=== PATIENT | male | born 1940 | race Caucasian/White ===

== ENCOUNTER 2023-05-15 11:14 | Outpatient (REF) | payer MEDICARE, SELFPAY ==
[2023-05-15 11:41] LABS: Basophils Absolute Auto 0.07 K/uL (0.00-0.30); Basophils Percent Auto 1.4 % (0.0-3.0); Eosinophils Percent Auto 7.7 % (0.0-7.0); Hematocrit 32.3 % (37.0-53.0); Hemoglobin* 10.3 gm/dL (13.5-17.5); Immature Granulocytes Abs Auto 0.01 K/uL (0.00-0.30); Immature Granulocytes Pct Auto 0.2 %; Lymphocytes Percent Auto 12.2 % (20-44); Mean Corpuscular HGB Conc 32 gm/dL (32-36); Mean Corpuscular Hemoglobin 33 pg (26-34); Mean Corpuscular Volume 105 fL (80-100); Monocytes Percent Auto 6.7 % (0.0-11.0); Neutrophils Absolute Auto 3.65 K/uL (1.7-7.0); Neutrophils Percent Auto 71.8 % (42.0-72.0); Platelet Count* 182 K/uL (140-440); RDW Coefficient of Variation % 15.2 % (11.5-15.5); Red Blood Count 3.09 m/uL (4.30-5.90); Slide Review Reflex No; White Blood Count* 5.08 K/uL (4.50-11.00)
[2023-05-15 11:44] LABS: Albumin* 4.2 g/dL (3.3-5.0); Chloride* 105 mmol/L (96-114)
[2023-05-15 11:45] LABS: Potassium* 3.1 mmol/L (3.6-5.1); Sodium* 142 mmol/L (135-149)
[2023-05-15 11:47] LABS: Aspartate Amino Transferase* 31 U/L (12-35); Carbon Dioxide* 28 mmol/L (20-32); Creatinine* 1.1 mg/dL (0.5-1.5); Estimated Glomerular Filt Rate 66 ml/min; Total Protein* 7.4 g/dL (6.0-8.3)
[2023-05-15 11:48] LABS: Alanine Aminotransferase* 20 U/L (4-50); Alkaline Phosphatase* 71 U/L (40-150); Blood Urea Nitrogen* 20 mg/dL (7-30); Calcium* 9.5 mg/dL (8.4-10.6); Glucose* 101 mg/dL (60-115)
== END 2023-05-15 11:15 | disposition home or self-care (01) ==
LOC: NPINS 11:14
PROVIDERS: PCP Family Medicine; Visit Provider Internal Medicine Hematology & Oncology
DX: D69.6 Thrombocytopenia, unspecified (principal)
CPT/HCPCS: 80053; 85025

== ENCOUNTER 2023-06-12 12:30 | Outpatient (RCR) | payer MEDICARE, SELFPAY ==
[2023-06-12 12:59] LABS: Basophils Absolute Auto 0.05 K/uL (0.00-0.30); Basophils Percent Auto 0.9 % (0.0-3.0); Eosinophils Absolute Auto 0.15 K/uL (0.00-0.50); Eosinophils Percent Auto 2.7 % (0.0-7.0); Hematocrit 33.8 % (37.0-53.0); Hemoglobin* 10.7 gm/dL (13.5-17.5); Lymphocytes Percent Auto 11.6 % (20-44); Mean Corpuscular HGB Conc 32 gm/dL (32-36); Mean Corpuscular Hemoglobin 32 pg (26-34); Mean Corpuscular Volume 101 fL (80-100); Monocytes Percent Auto 8.8 % (0.0-11.0); Platelet Count* 212 K/uL (140-440); RDW Coefficient of Variation % 14.1 % (11.5-15.5); Red Blood Count 3.36 m/uL (4.30-5.90); White Blood Count* 5.59 K/uL (4.50-11.00)
[2023-06-12 13:04] LABS: Slide Review Reflex No
[2023-07-10 09:44] LABS: Basophils Absolute Auto 0.05 K/uL (0.00-0.30); Basophils Percent Auto 0.9 % (0.0-3.0); Eosinophils Absolute Auto 0.25 K/uL (0.00-0.50); Eosinophils Percent Auto 4.6 % (0.0-7.0); Hematocrit 34.3 % (37.0-53.0); Hemoglobin* 10.8 gm/dL (13.5-17.5); Lymphocytes Percent Auto 16.5 % (20-44); Mean Corpuscular HGB Conc 32 gm/dL (32-36); Mean Corpuscular Hemoglobin 31 pg (26-34); Mean Corpuscular Volume 99 fL (80-100); Monocytes Percent Auto 6.1 % (0.0-11.0); Neutrophils Absolute Auto 3.91 K/uL (1.7-7.0); Neutrophils Percent Auto 71.9 % (42.0-72.0); Platelet Count* 201 K/uL (140-440); RDW Coefficient of Variation % 15.6 % (11.5-15.5); Red Blood Count 3.45 m/uL (4.30-5.90); White Blood Count* 5.44 K/uL (4.50-11.00)
[2023-07-10 09:57] LABS: Slide Review Reflex No
[2023-07-10 09:59] LABS: Chloride* 104 mmol/L (96-114); Potassium* 3.4 mmol/L (3.6-5.1); Sodium* 143 mmol/L (135-149)
[2023-07-10 10:01] LABS: Creatinine* 1.4 mg/dL (0.5-1.5); Estimated Glomerular Filt Rate 49 ml/min
[2023-07-10 10:02] LABS: Anion Gap 14 mEq/L (7-15); Blood Urea Nitrogen* 29 mg/dL (7-30); Calcium* 9.8 mg/dL (8.4-10.6); Carbon Dioxide* 25 mmol/L (20-32); Glucose* 110 mg/dL (60-115)
[2023-09-11 08:56] LABS: Basophils Absolute Auto 0.05 K/uL (0.00-0.30); Basophils Percent Auto 1.1 % (0.0-3.0); Eosinophils Absolute Auto 0.22 K/uL (0.00-0.50); Eosinophils Percent Auto 4.8 % (0.0-7.0); Hematocrit 32.9 % (37.0-53.0); Hemoglobin* 10.2 gm/dL (13.5-17.5); Lymphocytes Percent Auto 18.7 % (20-44); Mean Corpuscular HGB Conc 31 gm/dL (32-36); Mean Corpuscular Hemoglobin 32 pg (26-34); Mean Corpuscular Volume 103 fL (80-100); Monocytes Percent Auto 7.7 % (0.0-11.0); Neutrophils Absolute Auto 3.08 K/uL (1.7-7.0); Neutrophils Percent Auto 67.7 % (42.0-72.0); Platelet Count* 166 K/uL (140-440); RDW Coefficient of Variation % 20.3 % (11.5-15.5); Red Blood Count 3.21 m/uL (4.30-5.90); White Blood Count* 4.55 K/uL (4.50-11.00)
[2023-09-11 08:57] LABS: Slide Review Reflex No
[2023-10-10 10:45] LABS: Basophils Percent Auto 1.3 % (0.0-3.0); Eosinophils Percent Auto 8.5 % (0.0-7.0); Hematocrit 31.7 % (37.0-53.0); Hemoglobin* 10.2 gm/dL (13.5-17.5); Lymphocytes Percent Auto 16.8 % (20-44); Mean Corpuscular HGB Conc 32 gm/dL (32-36); Mean Corpuscular Hemoglobin 34 pg (26-34); Mean Corpuscular Volume 105 fL (80-100); Monocytes Percent Auto 8.5 % (0.0-11.0); Neutrophils Percent Auto 64.9 % (42.0-72.0); Platelet Count* 168 K/uL (140-440); RDW Coefficient of Variation % 18.3 % (11.5-15.5); Red Blood Count 3.03 m/uL (4.30-5.90); White Blood Count* 4.46 K/uL (4.50-11.00)
[2023-10-10 10:47] LABS: Slide Review Reflex No
[2023-12-11 09:04] LABS: Basophils Absolute Auto 0.04 K/uL (0.00-0.30); Basophils Percent Auto 0.8 % (0.0-3.0); Eosinophils Absolute Auto 0.24 K/uL (0.00-0.50); Eosinophils Percent Auto 4.6 % (0.0-7.0); Hematocrit 33.9 % (37.0-53.0); Hemoglobin* 10.9 gm/dL (13.5-17.5); Lymphocytes Percent Auto 14.3 % (20-44); Mean Corpuscular HGB Conc 32 gm/dL (32-36); Mean Corpuscular Hemoglobin 34 pg (26-34); Mean Corpuscular Volume 107 fL (80-100); Monocytes Percent Auto 7.8 % (0.0-11.0); Neutrophils Percent Auto 72.5 % (42.0-72.0); Platelet Count* 143 K/uL (140-440); RDW Coefficient of Variation % 16.1 % (11.5-15.5); Red Blood Count 3.17 m/uL (4.30-5.90); White Blood Count* 5.26 K/uL (4.50-11.00)
[2023-12-11 09:25] LABS: Slide Review Reflex Yes
[2023-12-11 09:26] LABS: Slide Review Acceptable Review (Acceptable)
== END 2024-06-03 09:31 | disposition home or self-care (01) ==
LOC: LAB 12:30
PROVIDERS: PCP Family Medicine; Visit Provider Nurse Practitioner Gerontology
DX: D53.9 Nutritional anemia, unspecified (principal); Z51.89 Encounter for other specified aftercare
CPT/HCPCS: 36415; 80048; 85025

== ENCOUNTER 2023-09-04 08:58 | Outpatient (REF) | payer MEDICARE, SELFPAY ==
[2023-09-04 09:54] LABS: Chloride* 107 mmol/L (96-114); Potassium* 3.9 mmol/L (3.6-5.1); Sodium* 142 mmol/L (135-149)
[2023-09-04 09:57] LABS: Anion Gap 7 mEq/L (7-15); Blood Urea Nitrogen* 36 mg/dL (7-30); Carbon Dioxide* 28 mmol/L (20-32); Creatinine* 1.5 mg/dL (0.5-1.5); Estimated Glomerular Filt Rate 45 ml/min; Glucose* 98 mg/dL (60-115)
[2023-09-04 09:58] LABS: Calcium* 9.7 mg/dL (8.4-10.6)
== END 2023-09-04 08:59 | disposition home or self-care (01) ==
LOC: NPINS 08:58
PROVIDERS: PCP Family Medicine; Visit Provider Family Medicine
DX: I50.9 Heart failure, unspecified (principal); E87.6 Hypokalemia
CPT/HCPCS: 36415; 80048

== ENCOUNTER 2023-10-22 11:14 | Emergency (ER) | payer MEDICARE, SELFPAY ==
[2023-10-22 11:19] VITALS: BP 111/77; PULSE 63; RESP 16; TEMP 36.6; O2SAT 92; BMI 25.7
--- NOTE | 2023-10-22 11:22 | CRLHL7_ITS ---
For Patients: As a result of the Cures Act, medical imaging exams and procedure reports are released immediately into your electronic medical record. You may view this report before your referring provider. If you have questions, please contact your health care provider. INDICATION: FALL, HIT BACK OF HEAD TECHNIQUE: Head CT without contrast. COMPARISON: CT head report on 03/29/2023 FINDINGS: CSF spaces: Within normal limits for age and degree of involutional changes.. Brain parenchyma and extra-axial spaces: Global cortical involutional changes. There are nonspecific low attenuation white matter changes consistent with chronic microvascular disease. No sign of mass, hemorrhage, or midline shift. 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 Encephalomalacia in the right occipital lobe. Skull base and calvarium: The visualized paranasal sinuses and mastoid air cells demonstrate no acute or significant findings. The visualized orbits are grossly unremarkable. No skull fractures. Small contusion/hematoma in the subcutaneous fat of the scalp at the occipital region, left of midline. IMPRESSION: 1. No evidence of an acute intracranial process. 2. Chronic infarcts as detailed above with small vessel ischemic changes and age related volume loss. 3. No acute fracture. Small contusion/hematoma in the subcutaneous fat of the scalp at the occipital region, left of midline. Please note that all CT scans at this facility use dose modulation, iterative reconstruction, and/or weight-based dosing when appropriate to reduce radiation dose to as low as reasonably achievable. Dictated by Colin Escalera MD @ 10/22/2023 12:22:12 PM (Electronically Signed)
--- NOTE | 2023-10-22 11:26 | ED.GENADULT ---
HPI - General Adult General Date Seen: 10/22/23 Chief complaint: Fall/Minor Trauma Stated complaint: fall last night- hurt head Time Seen by Provider: 10/22/23 11:16 Source: patient, family and RN notes reviewed Mode of arrival: wheelchair Limitations: no limitations History of Present Illness HPI narrative: Patient is an 83-year-old male here with his son. He is a resident at [facility]. Last night he says he was transferring and fell backward, striking the back of his head on the ground. He did not have loss of consciousness. He denies any symptoms such as headache, neck pain, nausea, vomiting, confusion, and denies any other injuries. He has a small cut on the back of his head. He did not want come in last night at 7:31 a.m. this occurred and so presents at 11:30 a.m. the morning of the next day. Last tetanus under review. He takes a baby aspirin. He used to take Eliquis secondary to history of atrial fibrillation apparently, but had severe thrombocytopenia and so was discontinued. Related Data Home Medications Medication Instructions Recorded Confirmed albuterol sulfate 90 mcg/actuation inhalation 10/22/23 aerosol inhaler aspirin 81 mg tablet,delayed 81 mg PO DAILY 10/22/23 10/22/23 release (Adult Aspirin Regimen) diclofenac sodium 1 % topical gel topical 10/22/23 ferrous sulfate 325 mg (65 mg 325 mg PO DAILY 10/22/23 10/22/23 iron) tablet (Feosol) fluoxetine 40 mg capsule 40 mg PO DAILY 10/22/23 10/22/23 fluticasone propionate 50 intranasal 10/22/23 mcg/actuation nasal spray,suspension furosemide 40 mg tablet 40 mg PO BID 10/22/23 10/22/23 multivitamin (Daily Multi-Vitamin 1 tab PO DAILY 10/22/23 10/22/23 tablet) pantoprazole 40 mg tablet,delayed 40 mg PO DAILY 10/22/23 10/22/23 release potassium chloride 10 mEq 10 meq PO DAILY 10/22/23 10/22/23 tablet,extended release(part/cryst) rosuvastatin 5 mg tablet 5 mg PO DAILY 10/22/23 10/22/23 tamsulosin 0.4 mg capsule mg PO DAILY 10/22/23 trazodone 50 mg tablet mg PO 10/22/23 Allergies Allergy/AdvReac Type Severity Reaction Status Date / Time chlorpheniramine Allergy Unknown Verified 10/22/23 11:26 Review of Systems Status of ROS: Reports: 6 or more systems reviewed and unremarkable except as noted in History and below [facility] Social History Smoking Status: Never smoker Exam Narrative: Exam Narrative: Vital signs as noted above. In general, an alert, well-appearing patient. Head: Normocephalic. He has a small abrasion and an associated approximately 0.5 cm laceration on the occipital scalp. Bleeding is controlled. Minor surrounding hematoma. Eyes: Pupils are equal reactive. Extraocular movements are full. Conjunctivae are normal. ENT: Mucous membranes are moist. No facial trauma. Neck: Supple without lymphadenopathy. Nontender to palpation. Extremities: Well perfused. No edema. No calf tenderness. Pulses intact. Neurologic: Patient is alert and oriented to person and place. Speech is fluent. Face is symmetric. Moves all extremities equally. Affect: Normal. Skin: Warm and dry. Well perfused. Const: Vital Signs, click to edit/add: Vital Signs - 24 hr 10/22/23 11:19 Temperature 98 F Pulse Rate [Pulse Oximeter] 63 Respiratory Rate 16 Blood Pressure [Ri ght Upper Arm] 111/77 Pulse Oximetry 92 Oxygen Delivery Me thod Room Air Documenting provider has reviewed patient's vital signs: yes Course Course ED Course: Given that the scalp wound is small and is about 16 hours old I have recommended that we simply treat that expectantly rather than closing. Discussed increased risk of infection with closure at this point, and given that the wound edges are nicely approximated, there is no bleeding, I think it will heal just fine without intervention. Did recommend noncontrast head CT to rule out intracranial injury. This is pending. He has no other complaints or injuries at this time. CT scan by my review is negative for acute findings such as hemorrhage; final radiology is negative as well. Tetanus was updated today. Discussed routine wound care, return for signs of severe head injury or infection. Vital Signs Vital signs: Initial Vital Signs Temperature 98 F 10/22/23 11:19 Temperature Source Temporal Artery Scan 10/22/23 11:19 Pulse Rate 63 10/22/23 11:19 Respiratory Rate 16 10/22/23 11:19 Blood Pressure 111/77 10/22/23 11:19 Blood Pressure Mean 88 10/22/23 11:19 Blood Pressure Position Supine 10/22/23 11:19 Pulse Oximetry 92 10/22/23 11:19 Oxygen Delivery Method Room Air 10/22/23 11:19 Vital Signs Temperature 98 F 10/22/23 11:19 Pulse Rate 63 10/22/23 11:19 Respiratory Rate 16 10/22/23 11:19 Blood Pressure 111/77 10/22/23 11:19 Pulse Oximetry 92 10/22/23 11:19 Oxygen Delivery Method Room Air 10/22/23 11:19 Temperature 98 F 10/22/23 11:19 Pulse Rate 63 10/22/23 11:19 Respiratory Rate 16 10/22/23 11:19 Blood Pressure 111/77 10/22/23 11:19 Pulse Oximetry 92 10/22/23 11:19 Oxygen Delivery Method Room Air 10/22/23 11:19 Medications Administered Medications: Discontinued Medications Generic Name Dose Route Start Last Admin Trade Name Mars PRN Reason Stop Dose Admin Diphtheria/Tetanus/Acell Pertussis 0.5 ml 10/22/23 12:13 10/22/23 12:28 Tetanus/Diphth/Pertussis 0.5 Ml Syringe IM 10/22/23 12:14 0.5 ml .ONCE ONE Administration Discharge Plan Discharge Clinical Impression: Laceration of scalp Patient Disposition: Home w/ Parent or Adult Condition: Stable Instructions: Laceration Without Closure (ED) Additional Instructions: Head CT today is reassuring. Wound on your scalp should heal without incident, but if you develop significant increased swelling, pain, drainage etcetera you should be seen again to rule out infection. If you were to develop severe headache, vomiting, confusion etcetera he should also return for re-evaluation. Prescriptions: No Action fluoxetine 40 mg capsule 40 mg PO DAILY furosemide 40 mg tablet 40 mg PO BID trazodone 50 mg tablet PO tamsulosin 0.4 mg capsule PO DAILY pantoprazole 40 mg tablet,delayed release (DR/EC) 40 mg PO DAILY albuterol sulfate 90 mcg/actuation HFA aerosol inhaler inhalation fluticasone propionate 50 mcg/actuation spray,suspension INTRANASAL Patient Comments: [NO ORIGINAL SIG] rosuvastatin 5 mg tablet 5 mg PO DAILY potassium chloride 10 mEq tablet,ER particles/crystals 10 meq PO DAILY aspirin [Adult Aspirin Regimen] 81 mg tablet,delayed release (DR/EC) 81 mg PO DAILY diclofenac sodium 1 % gel topical ferrous sulfate [Feosol] 325 mg (65 mg iron) tablet 325 mg PO DAILY multivitamin [Daily Multi-Vitamin] Tablet 1 tab PO DAILY Follow Up/Referrals: Danika Talley MD [Primary Care Provider] - Stand Alone Forms: [employer] Info Instructions
[2023-10-22] MEDS: TETANUS/DIPHTH/PERTUSSIS 0.5 ML SYRINGE IM (12:28)
== END 2023-10-22 12:35 | disposition home or self-care (01) ==
PROVIDERS: Emergency Provider Emergency Medicine; PCP Family Medicine
DX: S01.01XA Laceration without foreign body of scalp, initial encounter (principal); W18.30XA Fall on same level, unspecified, initial encounter
CPT/HCPCS: 70450; 90471; 90715; 99284

== ENCOUNTER 2023-11-13 09:17 | Outpatient (REF) | payer MEDICARE, SELFPAY ==
[2023-11-13 09:54] LABS: Basophils Absolute Auto 0.06 K/uL (0.00-0.30); Basophils Percent Auto 1.1 % (0.0-3.0); Eosinophils Percent Auto 10.7 % (0.0-7.0); Hematocrit 33.2 % (37.0-53.0); Hemoglobin* 10.7 gm/dL (13.5-17.5); Immature Granulocytes Abs Auto 0.05 K/uL (0.00-0.30); Lymphocytes Percent Auto 16.9 % (20-44); Mean Corpuscular HGB Conc 32 gm/dL (32-36); Mean Corpuscular Hemoglobin 34 pg (26-34); Mean Corpuscular Volume 106 fL (80-100); Monocytes Percent Auto 5.9 % (0.0-11.0); Neutrophils Absolute Auto 3.36 K/uL (1.7-7.0); Neutrophils Percent Auto 64.4 % (42.0-72.0); Platelet Count* 175 K/uL (140-440); RDW Coefficient of Variation % 16.7 % (11.5-15.5); Red Blood Count 3.14 m/uL (4.30-5.90); White Blood Count* 5.22 K/uL (4.50-11.00)
[2023-11-13 09:57] LABS: Slide Review Reflex No
== END 2023-11-13 09:18 | disposition home or self-care (01) ==
LOC: NPINS 09:17
PROVIDERS: PCP Family Medicine; Visit Provider Nurse Practitioner Gerontology
DX: D53.9 Nutritional anemia, unspecified (principal)
CPT/HCPCS: 85025

== ENCOUNTER 2023-12-18 21:30 | Emergency (ER) | payer MEDICARE, SELFPAY ==
[2023-12-18 21:35] VITALS: BP 113/66; PULSE 74; RESP 20; O2SAT 90; BMI 25.8
--- NOTE | 2023-12-18 21:52 | ED_ITS ---
HPI - General Adult General Chief complaint: Fall/Minor Trauma Stated complaint: Fall-Injury knee/hip possibly left side. Time Seen by Provider: 12/18/23 21:44 History of Present Illness HPI narrative: ft hip?This morning had a soft, controlled fall. Had another fall tonight that he now has pain. Went down and twisted knee and hip. Unknown when the fall occurred 83-year-old man presenting to the emergency department following a fall. Brought to this department by his son and I believe daughter in-law. Actually had a fall around 8:00 a.m. this morning and then again shortly before arrival. Did not hit his head. Primary complaint is spasms of pain or cramping in the left hip area. Both falls involved attempted transfer to or from wheelchair and bed and then landing on his ?butt?. He is wheelchair-bound he explains because of knee problems. The otherwise there was no new weakness or fever or cough or cold symptoms. I note him to be mildly labored and a little tachypneic but it would appear that this is around his baseline. He is not having back pain necessarily but feels like there is some, later as he describes some tension in or across his back in hips. Appears to have a complicated past medical history. Most recent admission was in March 2023 with marked thrombocytopenia and intracerebral bleed. Most recently seen in clinic at least cardiology clinic October of this year. And a transesophageal echo from 10/12/2019 for with normal left ventricular size and EF of 60 65%. Moderately enlarged right ventricular cavity and global RV function moderately reduced. Mitral valve with severe mitral regurgitation with flail leaflet. Tricuspid valve mild to moderate regurgitation. 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 He did have a bioprosthetic replacement of mitral valve and tricuspid valve but this failed on the mitral valve. With thrombocytopenia and cerebral hemorrhage was discontinued on anticoagulation beyond aspirin. As he is not terribly active with wheelchair bound and risk of bleeding with required anticoagulation decision at this point looks to have been made to not proceed with valve in valve procedure or Watchman. 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 in some degree of assisted living Medications include Acetaminophen Albuterol Topical diclofenac 81 mg aspirin Iron tabs Fluoxetine Fluticasone Furosemide 40 mg b.i.d. Multivitamin Pantoprazole Potassium 10 mEq daily Rosuvastatin Tamsulosin Trazodone Preprocedural amoxicillin Neosporin to scalp Related Data Home Medications Medication Instructions Recorded Confirmed albuterol sulfate 90 mcg/actuation inhalation 10/22/23 aerosol inhaler aspirin 81 mg tablet,delayed 81 mg PO DAILY 10/22/23 12/18/23 release (Adult Aspirin Regimen) diclofenac sodium 1 % topical gel topical 10/22/23 ferrous sulfate 325 mg (65 mg 325 mg PO DAILY 10/22/23 12/18/23 iron) tablet (Feosol) fluoxetine 40 mg capsule 40 mg PO DAILY 10/22/23 12/18/23 fluticasone propionate 50 intranasal 10/22/23 mcg/actuation nasal spray,suspension furosemide 40 mg tablet 40 mg PO BID 10/22/23 12/18/23 multivitamin (Daily Multi-Vitamin 1 tab PO DAILY 10/22/23 12/18/23 tablet) pantoprazole 40 mg tablet,delayed 40 mg PO DAILY 10/22/23 12/18/23 release potassium chloride 10 mEq 10 meq PO DAILY 10/22/23 12/18/23 tablet,extended release(part/cryst) rosuvastatin 5 mg tablet 5 mg PO DAILY 10/22/23 12/18/23 tamsulosin 0.4 mg capsule 0.4 mg PO DAILY 10/22/23 12/18/23 trazodone 50 mg tablet 50 mg PO PRN 10/22/23 acetaminophen 500 mg tablet 1,000 mg PO TID 12/18/23 12/18/23 (Acetaminophen Extra Strength) Allergies Allergy/AdvReac Type Severity Reaction Status Date / Time chlorpheniramine Allergy Unknown Verified 12/18/23 21:44 Review of Systems Status of ROS: Reports: 6 or more systems reviewed and unremarkable except as noted in History and below [facility] Social History Smoking Status: Never smoker How often do you have a drink containing alcohol: never AUDIT-C Alcohol total score: 0 Non-prescribed substance use: denies use service: No Exam Narrative: Exam Narrative: Is pleasant. Seated in wheelchair with left leg somewhat extended in front. Occasionally shivers in apparent spasm of pain. He is mildly tachypneic and mildly labored in his breathing as noted above. Trace upper airway wheeze. Oropharynx is sticky. Head does not appear to have sustained any recent trauma. Neck is supple. Cranial nerves 2-12 intact with equal pupils approximately 3 mm. He is speaking fluidly. Occasionally is forgetful. Lungs otherwise appear to be clear in the upper slaas but increasing crepitus with auscultation into middle and lower lung salas. 3/6 higher pitched holo-systolic murmur, thrill? across the precordium. Truncal movement does elicit exacerbation of pain. Generally peers well-perfused knee extremities. Though bilateral lower legs are a little cool. 1+ pitting edema in the lower legs. Flexes the right thigh without significant difficulty, hesitantly. Manipulation of the left thigh though illicits clear exacerbation of pain. He is quite sore to palpation over the left greater trochanter and posterior to this. Does not have tenderness to palpation of the midline spine. No other indication of trauma on his extremities; no erythema to his knees. Bilateral well-healed surgical scars are evident here. Const: Vital Signs, click to edit/add: Vital Signs - 24 hr 12/18/23 21:35 12/19/23 00:29 12/19/23 00:30 Temperature Pulse Rate [Pulse Oximeter] 74 70 Respiratory Rate 20 16 Blood Pressure [Le ft Upper Arm] 113/66 118/67 Pulse Oximetry 90 90 91 Oxygen Delivery Me thod Room Air Nasal Cannula Nasal Cannula Oxygen Flow Rate 3 Fraction of Inspir ed Oxygen 3 12/19/23 00:32 Temperature 97.7 F Pulse Rate [Pulse Oximeter] Respiratory Rate Blood Pressure [Le ft Upper Arm] Pulse Oximetry Oxygen Delivery Me thod Oxygen Flow Rate Fraction of Inspir ed Oxygen Documenting provider has reviewed patient's vital signs: yes Course Vital Signs Vital signs: Initial Vital Signs Pulse Rate 74 12/18/23 21:35 Respiratory Rate 20 12/18/23 21:35 Blood Pressure 113/66 12/18/23 21:35 Blood Pressure Mean 81 12/18/23 21:35 Blood Pressure Position Sitting 12/18/23 21:35 Pulse Oximetry 90 12/18/23 21:35 Oxygen Delivery Method Room Air 12/18/23 21:35 Vital Signs Pulse Rate 74 12/18/23 21:35 Respiratory Rate 20 12/18/23 21:35 Blood Pressure 113/66 12/18/23 21:35 Pulse Oximetry 90 12/18/23 21:35 Oxygen Delivery Method Room Air 12/18/23 21:35 Temperature 97.7 F 12/19/23 00:32 Pulse Rate 73 12/19/23 12:02 Respiratory Rate 20 12/19/23 05:14 Blood Pressure 120/73 12/19/23 12:02 Pulse Oximetry 94 12/19/23 12:02 Oxygen Delivery Method OxyMask 12/19/23 05:14 Oxygen Flow Rate 5 12/19/23 05:14 Fraction of Inspired Oxygen 3 12/19/23 00:30 Medications Administered Medications: Discontinued Medications Generic Name Dose Route Start Last Admin Trade Name Freq PRN Reason Stop Dose Admin Albuterol/Ipratropium 1 neb 12/19/23 02:51 12/19/23 02:52 Iprat-Albut 0.5-2.5 Mg/3 Ml Neb IH 12/19/23 02:52 1 neb ONCE ONE Administration Furosemide 20 mg 12/18/23 23:48 12/19/23 00:07 Furosemide 10 Mg/Ml Inj IVP 12/18/23 23:49 20 mg ONCE ONE Administration Hydromorphone HCl 0.2 - 0.5 mg 12/19/23 04:12 12/19/23 12:19 Hydromorphone 0.5 Mg/0.5 Ml Inj IVP 0.5 mg Q2H PRN Administration Pain Lidocaine HCl 6 ml 12/18/23 23:51 12/19/23 00:10 Lidocaine Hcl 2 % Jelly (Top) Sterile UR 6 ml ONCE PRN Administration Morphine Sulfate 4 mg 12/18/23 22:06 12/18/23 22:20 Morphine 4 Mg/Ml Inj IVP 12/18/23 22:07 4 mg ONCE ONE Administration Morphine Sulfate 4 mg 12/18/23 23:25 12/18/23 23:50 Morphine 4 Mg/Ml Inj IVP 4 mg ONCE PRN Administration pain Medical Decision Making MDM Narrative Medical decision making narrative: Will need to evaluate for hip fracture to begin with. Pelvic fracture also. Appears to have pulmonary congestion of some sort. From discussion with son and [id number] and review of records it would appear that Mr. Parikh is rather complicated with numerous comorbidities. Reviewing records shows oxygen saturations of 90% on room air near baseline or at least similar to October this year when seen Cardiology with oxygen saturation of 92%. Placed IV. Morphine for initial pain dose was helpful. X-ray of hip and pelvis shows by my read a left femoral neck fracture with minimal displacement. Femoral head is seated in the acetabulum. With congestion evident and hypoxia did request also chest x-ray in anticipation of possible surgery. Chest x-ray reviewed by me small left pleural effusion and interstitial fluid. Atelectatic change. Radiology over-read as below Study:?XRay Chest PCXR-12/18/2023 11:07:26 PM Ordering Physician:SHEREE Final Report: INDICATION: Valvular disease, wheeze, fall. TECHNIQUE: Chest 1 view. COMPARISON: None. FINDINGS: The right costophrenic angle is excluded from the field of view. Small left pleural effusion. Consolidation in the left lung base and retrocardiac region may represent atelectasis or infiltrate. Increased interstitial opacities bilaterally. Hazy airspace opacities in the mid to lower lungs. No pneumothorax. Normal heart size. Pulmonary vascular congestion. Sternotomy with cardiac valve prostheses. Degenerative changes of the shoulders. IMPRESSION: 1. Pulmonary vascular congestion with bilateral interstitial prominence likely due to edema. 2. Small left pleural effusion with atelectasis or infiltrate in the left lung base. Did discuss with orthopedics for potential surgery. My concern still is comorbidities and subsequent intraoperative and postoperative course. I discussed this with hospitalist who will be discussing further care concerns with family. Platelets of a 128,000. Hemoglobin of 8.6 is similar to there reported baseline of somewhere around 8 or 9 though last checked here was just a little bit over 10. Due to concerns of comorbidities, recommendations are to receive further cares at [facility]. I spoken with the hospitalist there and he is accepted on a bed wait. Recommendations are to hold on on IV fluid resuscitation, transition to Dilaudid if opiate needed and hold on IV diuresis. Will be handing off at change of shift Lab Data Lab results reviewed: Yes I reviewed the patient's lab results Labs: Lab Results 12/18/23 12/18/23 12/19/23 Range/Units 23:00 23:12 00:04 WBC 6.11 (4.50-11.00) K/uL RBC 2.49 L (4.30-5.90) m/uL Hgb 8.6 L (13.5-17.5) gm/dL Hct 27.0 L (37.0-53.0) % MCV 108 H (80-100) fL MCH 35 H (26-34) pg MCHC 32 (32-36) gm/dL RDW Coeff of Jay 15.9 H (11.5-15.5) % Plt Count 128 L (140-440) K/uL Neut % (Auto) 82.0 H (42.0-72.0) % Lymph % (Auto) 10.1 L (20-44) % Wilson % (Auto) 5.4 (0.0-11.0) % Eos % (Auto) 2.0 (0.0-7.0) % Baso % (Auto) 0.3 (0.0-3.0) % Neut # (Auto) 5.00 (1.7-7.0) K/uL Lymph # (Auto) 0.60 L (0.90-2.90) K/uL Wilson # (Auto) 0.30 (0.00-0.90) K/UL Eos # (Auto) 0.12 (0.00-0.50) K/uL Baso # (Auto) 0.02 (0.00-0.30) K/uL Abs Immat Gran (auto) 0.01 (0.00-0.30) K/uL Imm/Tot Granulo (auto) 0.2 % Sodium 141 (135-149) mmol/L Potassium 3.7 (3.6-5.1) mmol/L Chloride 108 (96-114) mmol/L Carbon Dioxide 24 (20-32) mmol/L Anion Gap 9 (7-15) mEq/L BUN 40 H (7-30) mg/dL Creatinine 1.6 H (0.5-1.5) mg/dL Estimated Creat Clear 35.95 Estimated GFR 42 ml/min Glucose 103 (60-115) mg/dL Calcium 9.2 (8.4-10.6) mg/dL Troponin I < 0.01 L (0.01-0.04) ng/mL NT-Pro-B Natriuret Pep 2470 pg/mL Urine Color Yellow (Yellow) Urine Appearance Slightly Cloudy A (Clear) Urine pH 5.5 (5.0-8.5) Ur Specific [place] 1.015 (1.000-1.030) Urine Protein Negative (Negative) Urine Glucose (UA) Negative (Negative) Urine Ketones Negative (Negative) Urine Blood Negative (Negative) Urine Nitrite Negative (Negative) Urine Bilirubin Negative (Negative) Urine Urobilinogen 0.2 (0.2-1.0) Ur Leukocyte Esterase Negative (Negative) Urine RBC 0-2 (0-2) Urine WBC 0-2 (0-5) Ur Squamous Epith Cells Few (None-Few) Urine Bacteria None (None) SARS-CoV-2 (PCR) (Negative) Influenza Type A (PCR) (Negative) Influenza Type B (PCR) (Negative) RSV (PCR) (Negative) Lab Acknowledgement Test Added 12/19/23 Range/Units 02:55 WBC (4.50-11.00) K/uL RBC (4.30-5.90) m/uL Hgb (13.5-17.5) gm/dL Hct (37.0-53.0) % MCV (80-100) fL MCH (26-34) pg MCHC (32-36) gm/dL RDW Coeff of Jay (11.5-15.5) % Plt Count (140-440) K/uL Neut % (Auto) (42.0-72.0) % Lymph % (Auto) (20-44) % Wilson % (Auto) (0.0-11.0) % Eos % (Auto) (0.0-7.0) % Baso % (Auto) (0.0-3.0) % Neut # (Auto) (1.7-7.0) K/uL Lymph # (Auto) (0.90-2.90) K/uL Wilson # (Auto) (0.00-0.90) K/UL Eos # (Auto) (0.00-0.50) K/uL Baso # (Auto) (0.00-0.30) K/uL Abs Immat Gran (auto) (0.00-0.30) K/uL Imm/Tot Granulo (auto) % Sodium (135-149) mmol/L Potassium (3.6-5.1) mmol/L Chloride (96-114) mmol/L Carbon Dioxide (20-32) mmol/L Anion Gap (7-15) mEq/L BUN (7-30) mg/dL Creatinine (0.5-1.5) mg/dL Estimated Creat Clear Estimated GFR ml/min Glucose (60-115) mg/dL Calcium (8.4-10.6) mg/dL Troponin I (0.01-0.04) ng/mL NT-Pro-B Natriuret Pep pg/mL Urine Color (Yellow) Urine Appearance (Clear) Urine pH (5.0-8.5) Ur Specific [place] (1.000-1.030) Urine Protein (Negative) Urine Glucose (UA) (Negative) Urine Ketones (Negative) Urine Blood (Negative) Urine Nitrite (Negative) Urine Bilirubin (Negative) Urine Urobilinogen (0.2-1.0) Ur Leukocyte Esterase (Negative) Urine RBC (0-2) Urine WBC (0-5) Ur Squamous Epith Cells (None-Few) Urine Bacteria (None) SARS-CoV-2 (PCR) Negative SARS-CoV-2 (Negative) Influenza Type A (PCR) Negative PCR FLU A (Negative) Influenza Type B (PCR) Negative PCR FLU B (Negative) RSV (PCR) Negative PCR RSV (Negative) Lab Acknowledgement ECG Data Attestation: I personally reviewed and interpreted this ECG as follows: (I believe this is a sinus rhythm with 1st degree AV block. PVC. Low voltage. Rate of 69) Discharge Plan Discharge Clinical Impression: Femoral neck fracture, Heart failure, Pleural effusion, Severe mitral regurgitation Patient Disposition: [facility] Condition: Stable Prescriptions: No Action fluoxetine 40 mg capsule 40 mg PO DAILY furosemide 40 mg tablet 40 mg PO BID trazodone 50 mg tablet 50 mg PO PRN tamsulosin 0.4 mg capsule 0.4 mg PO DAILY pantoprazole 40 mg tablet,delayed release (DR/EC) 40 mg PO DAILY albuterol sulfate 90 mcg/actuation HFA aerosol inhaler inhalation fluticasone propionate 50 mcg/actuation spray,suspension INTRANASAL Patient Comments: [NO ORIGINAL SIG] rosuvastatin 5 mg tablet 5 mg PO DAILY potassium chloride 10 mEq tablet,ER particles/crystals 10 meq PO DAILY aspirin [Adult Aspirin Regimen] 81 mg tablet,delayed release (DR/EC) 81 mg PO DAILY diclofenac sodium 1 % gel topical ferrous sulfate [Feosol] 325 mg (65 mg iron) tablet 325 mg PO DAILY multivitamin [Daily Multi-Vitamin] Tablet 1 tab PO DAILY acetaminophen [Acetaminophen Extra Strength] 500 mg tablet 1,000 mg PO TID Stand Alone Forms: [facility] Info Instructions
--- NOTE | 2023-12-18 22:05 | XR_ITS ---
Patient: JESSIE JULIEN Facility:?[facility] Patient ID:?[id number] Site Patient ID:?[id number]. Site :?[id number] Study:?XRay-Hip Left PELVIS WITH HIP 2V-12/18/2023 10:42:50 PM Ordering Physician:SHEREE Final Report: INDICATION: Fall. TECHNIQUE: Pelvis and left hip 3 view. COMPARISON: None. FINDINGS: There is an acute comminuted and mildly displaced fracture of the left femoral neck. The femoral head remains normally aligned with the acetabulum. Mild degenerative changes of the hips. The sacroiliac joints are normal in appearance. Pelvic phleboliths. Vascular calcifications. Soft tissues are unremarkable. IMPRESSION: Acute comminuted mildly displaced fracture of the left femoral neck. Dictated by Ashley Neves MD @ 12/18/2023 11:42:33 PM Signed by:?Ashley Neves MD @12/18/2023 11:42:33 PM (Electronic Signature)
[2023-12-18] MEDS: MORPHINE 4 MG/ML INJ IVP ×2 (22:20→23:50)
--- NOTE | 2023-12-18 22:48 | XR_ITS ---
Patient: JESSIE JULIEN Facility:?[facility] Patient ID:?[id number] Site Patient ID:?[id number]. Site :?[id number] Study:?XRay-Chest PCXR-12/18/2023 11:07:26 PM Ordering Physician:SHEREE Final Report: INDICATION: Valvular disease, wheeze, fall. TECHNIQUE: Chest 1 view. COMPARISON: None. FINDINGS: The right costophrenic angle is excluded from the field of view. Small left pleural effusion. Consolidation in the left lung base and retrocardiac region may represent atelectasis or infiltrate. Increased interstitial opacities bilaterally. Hazy airspace opacities in the mid to lower lungs. No pneumothorax. Normal heart size. Pulmonary vascular congestion. Sternotomy with cardiac valve prostheses. Degenerative changes of the shoulders. IMPRESSION: 1. Pulmonary vascular congestion with bilateral interstitial prominence likely due to edema. 2. Small left pleural effusion with atelectasis or infiltrate in the left lung base. Dictated by Ashley Neves MD @ 12/19/2023 12:12:02 AM Signed by:?Ashley Neves MD @12/19/2023 12:12:02 AM (Electronic Signature)
[2023-12-18 23:24] LABS: Basophils Absolute Auto 0.02 K/uL (0.00-0.30); Basophils Percent Auto 0.3 % (0.0-3.0); Eosinophils Absolute Auto 0.12 K/uL (0.00-0.50); Hemoglobin* 8.6 gm/dL (13.5-17.5); Immature Granulocytes Abs Auto 0.01 K/uL (0.00-0.30); Immature Granulocytes Pct Auto 0.2 %; Lymphocytes Percent Auto 10.1 % (20-44); Mean Corpuscular HGB Conc 32 gm/dL (32-36); Mean Corpuscular Hemoglobin 35 pg (26-34); Mean Corpuscular Volume 108 fL (80-100); Monocytes Percent Auto 5.4 % (0.0-11.0); Platelet Count* 128 K/uL (140-440); RDW Coefficient of Variation % 15.9 % (11.5-15.5); Red Blood Count 2.49 m/uL (4.30-5.90); White Blood Count* 6.11 K/uL (4.50-11.00)
[2023-12-18 23:27] LABS: Slide Review Reflex No
[2023-12-18 23:31] LABS: Chloride* 108 mmol/L (96-114); Sodium* 141 mmol/L (135-149)
[2023-12-18 23:32] LABS: Potassium* 3.7 mmol/L (3.6-5.1)
[2023-12-18 23:34] LABS: Anion Gap 9 mEq/L (7-15); Blood Urea Nitrogen* 40 mg/dL (7-30); Carbon Dioxide* 24 mmol/L (20-32); Creatinine* 1.6 mg/dL (0.5-1.5); Est. Creatinine Clearance* 35.95; Estimated Glomerular Filt Rate 42 ml/min
[2023-12-18 23:35] LABS: Calcium* 9.2 mg/dL (8.4-10.6); Glucose* 103 mg/dL (60-115)
[2023-12-18 23:58] LABS: NT Pro B Type NatriureticPept* 2470 pg/mL; Troponin I* < 0.01 ng/mL (0.01-0.04)
[2023-12-19] VITALS (45 sets, daily range): BP systolic 109–120; BP diastolic 61–106; PULSE 69–83; RESP 16–24; TEMP 36.5; O2SAT 86–96
[2023-12-19] MEDS: FUROSEMIDE 10 MG/ML inj 20 MG IVP (00:07)
[2023-12-19] MEDS: lidocaine HCL 2 % JELLY (TOP) STERILE 6 ML UR (00:10)
[2023-12-19 00:13] LABS: Appearance Urine Slightly Cloudy (Clear); Bilirubin Urine Negative (Negative); Blood Urine Negative (Negative); Color Urine Yellow (Yellow); Glucose Urine Negative (Negative); Ketones Urine Negative (Negative); Leukocyte Esterase Urine Negative (Negative); Nitrite Urine Negative (Negative); Protein Urine Negative (Negative); Specific Gravity Urine 1.015 (1.000-1.030); Urobilinogen Urine 0.2 (0.2-1.0); pH Urine 5.5 (5.0-8.5)
[2023-12-19 00:20] LABS: RBC Urine 0-2 (0-2); Squamous Epithelial Cell Urine Few (None-Few); WBC Urine 0-2 (0-5)
[2023-12-19] MEDS: IPRAT-ALBUT 0.5-2.5 MG/3 ML NEB 1 NEB IH (02:52)
[2023-12-19] MEDS: HYDROmorphone 0.5 mg/0.5 ml inj IVP ×4 (03:30→12:19)
[2023-12-19 03:42] LABS: PCR FLU A Negative PCR FLU A (Negative); PCR FLU B Negative PCR FLU B (Negative); PCR RSV Negative PCR RSV (Negative); SARS PCR* Negative SARS-CoV-2 (Negative)
== END 2023-12-19 12:22 | disposition short-term general hospital (02) ==
PROVIDERS: Family Medicine; Emergency Provider Family Medicine; PCP Family Medicine
DX: S72.002A Fracture of unspecified part of neck of left femur, initial encounter for closed fracture (principal); I50.9 Heart failure, unspecified; J90 Pleural effusion, not elsewhere classified; I34.0 Nonrheumatic mitral (valve) insufficiency; W18.30XA Fall on same level, unspecified, initial encounter
CPT/HCPCS: 36415; 71045; 73502; 80048; 81001; 83880; 84484; 85025; 87631; 93005; 94640; 96374; 96375; 99284; 99285; J1170; J1940; J2270

== ENCOUNTER 2023-12-19 12:05 | Outpatient (CLI) | payer MEDICARE, SELFPAY | END 2023-12-19 12:06 | disposition home or self-care (01) | LOC: AMB 12-21 12:04 | PROVIDERS: PCP Family Medicine; Visit Provider Family Medicine | DX: S72.009S Fracture of unspecified part of neck of unspecified femur, sequela (principal) | CPT/HCPCS: A0425; A0426 ==